=== PATIENT | male | born 1995 | race Caucasian/White ===

== ENCOUNTER 2018-06-25 18:35 | Emergency (ER) | payer OTHER ==
[~2018-06-25] VITALS: Ht 182.9 cm; Wt 68.0 kg
== END 2018-06-26 02:15 | disposition home or self-care (01) ==
LOC: ER 18:35
DX: M25.532 Pain in left wrist (principal); S63.592S Other specified sprain of left wrist, sequela; X50.0XXS Overexertion from strenuous movement or load, sequela